=== PATIENT | female | born 1985 | race Two or more races ===

== ENCOUNTER 2017-10-29 07:41 | Emergency (ER) | payer MEDICAID, OTHER, SELFPAY ==
[~2017-10-29] VITALS: Ht 157.5 cm; Wt 80.0 kg
[2017-10-29 07:47] VITALS: BP 104/78
[2017-10-29] MEDS ORDERED: GABAPENTIN 100 MG CAPSULE PO ONE (08:00)
[2017-10-29] MEDS ORDERED: SERTRALINE 50MG TABLET ONE (08:11)
[2017-10-29] MEDS ORDERED: ARIPIPRAZOLE 10 MG TABLET ONE (08:11)
[2017-10-29 08:26] LABS: ALBUMIN 3.6 g/dL (3.4-5.0); CALCIUM 8.1 mg/dL (8.5-10.1); CREATININE 0.83 mg/dL (0.55-1.02)
[2017-10-29 08:30] LABS: ANION GAP 9 mmol/L (5-15); BASOPHILS # (AUTO) 0.04 x10^3/uL (0-0.1); BASOPHILS % (AUTO) 1 % (0-1); EOSINOPHILS # (AUTO) 0.14 x10^3/uL (0-0.4); EOSINOPHILS % (AUTO) 3 % (1-7); LYMPHOCYTES # (AUTO) 1.59 x10^3/uL (1-3.4); LYMPHOCYTES % (AUTO) 31 % (22-44); MD NO; MEAN CORPUSCULAR HEMOGLOBIN 28.8 pg (27.0-34.8); MEAN CORPUSCULAR HGB CONC 33.3 g/dL (32.4-35.8); MEAN CORPUSCULAR VOLUME 86.3 fL (80-100); MEAN PLATELET VOLUME 7.5 fL (7.4-10.4); MONOCYTES # (AUTO) 0.27 x10^3/uL (0.2-0.8); MONOCYTES % (AUTO) 5 % (2-9); NEUTROPHILS # (AUTO) 3.13 x10^3/uL (1.8-6.8); NEUTROPHILS % (AUTO) 61 % (42-75); PLATELET COUNT 285 x10^3/uL (130-400)
[2017-10-29] MEDS ORDERED: PLEASE ENTER ALLERGIES MC SCH (08:30)
[2017-10-29] MEDS ORDERED: TOPI100T24 PO (08:33)
[2017-10-29] MEDS ORDERED: SERT50TA PO (08:33)
[2017-10-29] MEDS ORDERED: TRAZ150T62 PO (08:33)
[2017-10-29] MEDS ORDERED: ARIP10TA33 PO (08:33)
[2017-10-29] MEDS ORDERED: GABA300C PO (08:33)
[2017-10-29] MEDS ORDERED: HYDR50CA PO (08:33)
[2017-10-29] MEDS ORDERED: ATOM60CA PO (08:33)
[2017-10-29 08:36] LABS: ACETAMINOPHEN < 2 mcg/mL (10-30); SALICYLATE LEVEL < 1.7 mg/dL (2.8-20.0)
[2017-10-29 08:37] LABS: CHLORIDE 114 mmol/L (98-107)
[2017-10-29 08:52] LABS: AMPHETAMINE SCREEN, URINE Negative (Negative); BARBITURATE SCREEN, URINE Negative (Negative); BENZODIAZEPINE SCREEN, URINE Negative (Negative); CANNABINOID SCREEN, URINE Negative (Negative); COCAINE SCREEN, URINE Negative (Negative); METHADONE SCREEN, URINE Negative (Negative); OPIATE SCREEN, URINE Negative (Negative)
[2017-10-29] MEDS ORDERED: ARIPIPRAZOLE 10 MG TABLET PO SCH (09:00)
[2017-10-29] MEDS ORDERED: SERTRALINE 50MG TABLET PO SCH (09:00)
[2017-10-29] MEDS ORDERED: TOPIRAMATE 100 MG TABLET PO SCH (09:00)
== END 2017-10-29 10:55 | disposition home or self-care (01) ==
LOC: ED 09:19
DX: F25.1 Schizoaffective disorder, depressive type (principal); F17.200 Nicotine dependence, unspecified, uncomplicated; R45.851 Suicidal ideations; Z88.5 Allergy status to narcotic agent; Z79.899 Other long term (current) drug therapy
CPT/HCPCS: 36415; 80048; 80307; 80329; 82040; 84703; 85025; 99284; Q0177; G0480